=== PATIENT | male | born 1970 | race Caucasian/White ===

== ENCOUNTER → 2019-08-09 | Emergency (ER) | payer MEDICAID, OTHER ==
[~2019-08-09] VITALS: Ht 185.4 cm; Wt 149.7 kg
[~2019-08-09] MED LIST: SODIUM CHLORIDE 0.9% 1,000 ML IV ONE; metroNIDAZOLE 500MG/100ML 100 ML IV ONE
[2019-08-09 20:17] LABS: Basophils # (auto) 0 10 ^3/uL (0-0.2); Basophils % (auto) 0.4 % (0.0-2.0); Eosinophils # (auto) 0.3 10 ^3/uL (0-0.8); Eosinophils % (auto) 3.2 % (0.0-7.0); Hematocrit 45.3 % (41.0-53.0); Hemoglobin 15.7 g/dL (13.5-17.5); Lymphocytes # (auto) 2.6 10 ^3/uL (0.4-5.4); Lymphocytes % (auto) 26.1 % (10.0-50.0); Mean Corpuscular Hemoglobin 31.2 pg (28.0-32.0); Mean Corpuscular Hgb Conc. 34.6 g/dL (32.0-36.0); Mean Corpuscular Volume 90.1 fL (80.0-100.0); Monocytes # (auto) 0.7 10 ^3/uL (0-1.3); Monocytes % (auto) 7.4 % (0.0-12.0); Neutrophils # (auto) 6.3 10 ^3/uL (1.6-8.6); Neutrophils % (auto) 62.9 % (37.0-80.0); Nucleated Red Blood Cells % 0.1 %; Platelet Count (auto) 194 10^3/uL (140-450); Red Blood Cells 5.03 10^6/uL (4.5-5.90); Red Cell Distribution Width 14.1 % (11.8-14.3)
[2019-08-09 20:17] LABS: Urine Bacteria NONE SEEN /hpf (None Seen); Urine Blood Negative /uL (Negative); Urine Mucus FEW (None Seen); Urine Specific Gravity 1.026 (1.001-1.035); Urine WBC 1 /hpf (0 - 3)
[2019-08-09 20:27] LABS: Amylase 72 U/L (25-115); Lipase 105 U/L (73-393)
[2019-08-09 20:28] LABS: Albumin 3.6 g/dL (3.4-5.0); Calcium 8.5 mg/dL (8.5-10.1); Potassium 4.1 mmol/L (3.5-5.1)
[2019-08-09 20:31] LABS: BUN/Creatinine Ratio 13.9; Bilirubin, Total 0.5 mg/dL (0.2-1.0); Total Protein 7.3 g/dL (6.4-8.2)
[2019-08-09 20:32] LABS: Alcohol, Urine < 3.0 mg/dL (0-5); Amphetamine Screen, Urine NEGATIVE (NEGATIVE); Barbiturate Scree,Urine NEGATIVE (NEGATIVE); Benzodiazephine Screen, Urine NEGATIVE (NEGATIVE); Cannabinoid Screen, Urine NEGATIVE (NEGATIVE); Cocaine Screen, Urine NEGATIVE (NEGATIVE); Opiate Scree,Urine NEGATIVE (NEGATIVE); Phencyclidine Screen, Urine NEGATIVE (NEGATIVE)
[2019-08-09 20:44] LABS: INR 1.01 (0.9-1.15); Partial Thromboplastin Time 27.4 sec (23.64-32.05)
[2019-08-09 23:13] VITALS: BP 123/62
== END | disposition home or self-care (01) ==
LOC: EDSEX 18:47 → ER 18:47
DX: K57.30 Diverticulosis of large intestine without perforation or abscess without bleeding (principal); R11.2 Nausea with vomiting, unspecified
CPT/HCPCS: 36415; 74176; 80053; 80307; 81001; 82150; 83605; 83690; 84484; 85025; 85610; 85730; 93005; 96361; 96365; 99285; J3490; J7030

== ENCOUNTER 2021-11-11 13:04 | Emergency (ER) | payer MEDICAID ==
[~2021-11-11] VITALS: Ht 185.4 cm; Wt 149.7 kg
[2021-11-11] MEDS ORDERED: HYDROcodone-ACET 10/325MG TAB PO ONE (13:30)
[2021-11-11 13:50] VITALS: BP 130/74
[2021-11-11] MEDS ORDERED: HYDR-4902 PO (16:10)
== END 2021-11-11 16:51 | disposition home or self-care (01) ==
LOC: ER 13:04 → EDBD 13:04 → ER 16:49
DX: M16.12 Unilateral primary osteoarthritis, left hip (principal); Z79.899 Other long term (current) drug therapy
CPT/HCPCS: 72170